=== PATIENT | female | born 1960 | race Caucasian/White ===

== ENCOUNTER 2018-12-09 09:56 | Emergency (ER) | payer OTHER ==
[~2018-12-09] VITALS: Ht 177.8 cm; Wt 108.9 kg
--- OUTSIDE RECORDS SUMMARY | 2018-12-09 09:59 | XMS REPORT ---
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 Assessment Other intermediate (current) drug therapy Z79.899 Active Assessment Polyarthralgia M25.50 Active Problem Acute bilateral thoracic back pain M54.6 Active Problem Neck pain M54.2 Active Problem Hypothyroidism, unspecified type E03.9 Active Problem Polyarthralgia M25.50 Active Problem Other specified arthritis, 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 Problem Osteopenia M85.80 Active Problem Skin rash R21 Active Medications Medication Code System Code Instructions Start Date End Date Status Dosage Tramadol HCl [facility] 26103959861 50 MG Orally as needed Dec 15, 2017 Inactive 1 tablet Vitamin B12 [facility] 20565346817 1000 MCG Orally Once a day Active 1 tablet Xanax ND 25272277911 0.5 MG Orally q day Oct 29, 2017 Active [address] [facility] 61740973839 - Orally Active as directed Glucosamine ND 95688989706 500 MG Orally Once a day Active 1 capsule with a meal Aspirin ND 37875692005 81 MG Orally Once a day Active 1 tablet Metoprolol Succinate ER ND 52059903530 25 MG Orally once a day Oct 29, 2017 Active 1 tablet Sertraline HCl ND 65624872649 100 MG Orally Once a day Oct 29, 2017 Active 1/2 tablet Medrol ND 74345500932 4 MG Orally q am with food Oct 29, 2017 Active 1 tablet Meloxicam ND 02060232261 7.5 MG Orally twice a day Active 1 tablet Vital Signs Date/Time: Dec 15, 2017 BMI 35.15 Index Weight 245 lbs Height 70 in Temperature 98.7 F Cardiac Monitoring Heart Rate 72 /min Blood Pressure Diastolic 72 mm Hg Blood Pressure Systolic 120 mm Hg Results No Known Results Summary Purpose eClinicalWorks Submission
--- OUTSIDE RECORDS SUMMARY | 2018-12-09 09:59 | XMS REPORT ---
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 31935169729 25 MG Orally once a day Active 1 tablet Results No Known Results Summary Purpose eClinicalWorks Submission
--- OUTSIDE RECORDS SUMMARY | 2018-12-09 09:59 | XMS REPORT ---
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
--- OUTSIDE RECORDS SUMMARY | 2018-12-09 09:59 | XMS REPORT ---
Author Skip Andrews Organization e[employer] Address Unknown Phone Unavailable Care Team Providers Care Highballer Name Role Phone Skip Hill CP Unavailable Allergies No Known Allergies Problems Problem Type Condition Code Onset Dates Condition Status Assessment Low back pain at multiple sites M54.5 Active Problem Other [facility] (current) drug therapy Z79.899 Active Assessment Neck pain M54.2 Active Problem Acute bilateral thoracic back pain M54.6 Active Problem Neck pain M54.2 Active Problem Hypothyroidism, unspecified type E03.9 Active Problem Polyarthralgia M25.50 Active Problem Other specified arthritis, 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
--- OUTSIDE RECORDS SUMMARY | 2018-12-09 09:59 | XMS REPORT | Continuity of Care Document ---
Author Author [employer] [facility] Interface Address Unknown Phone Unavailable Problems Problem Status Onset Date Classification Date Reported Comments Source Other skilled nursing drug therapy Active Problem 12/08/2018 Dax Hill Acute bilateral thoracic back pain Active Problem 12/08/2018 Dax Hill Neck pain Active Problem 12/08/2018 Dax Hill Hypothyroidism, unspecified type Active Problem 12/08/2018 Dax Hill Polyarthralgia Active Problem 12/08/2018 Dax Hill Other specified arthritis, multiple sites Active Problem 12/08/2018 Dax Hill Osteopenia Active Problem 12/08/2018 Dax Hill Skin rash Active Problem 12/08/2018 Dax Hill Low back pain at multiple sites Active Diagnosis 08/11/2018 Dax Hill Medications Medication Details Route Status Patient Instructions Ordering Provider Order Date Source Tramadol HCl 1 tablet Orally Active 50 MG Orally as needed [place] 12/15/2017 Dax Hill Xanax 1 tablet Orally Active 0.5 MG Orally q day [place] 10/29/2017 Dax Hill Metoprolol Succinate ER 1 tablet Orally Active 25 MG Orally once a day [place] 10/29/2017 Dax Hill Sertraline HCl 1/2 tablet Orally Active 100 MG Orally Once a day [place] 10/29/2017 Dax Hill Medrol 1 tablet Orally Active 4 MG Orally q am with food [place] 10/29/2017 Dax Hill Metoprolol Succinate ER 1 tablet Orally Active 25 MG Orally once a day [place] Dax Hill Aspirin 1 tablet Orally Active 81 MG Orally Once a day [place] Dax Hill Xanax 1 tablet Orally Active 0.5 MG Orally q day [place] Dax Hill Medrol 2 tablets Orally Active 4 MG Orally q am with food [place] Dax Hill Sertraline HCl 1/2 tablet Orally Active 100 MG Orally Once a day [place] Dax Hill Metoprolol Succinate ER 1 tablet Orally Active 25 MG Orally once a day [place] Dax Hill Vitamin B12 1 tablet Orally Active 1000 MCG Orally Once a day [place] Dax Hill Probiotic as directed Orally Active - Orally Liz Hill Glucosamine 1 capsule with a meal Orally Active 500 MG Orally Once a day Liz Hill Meloxicam 1 tablet Orally Active 7.5 MG Orally twice a day Liz Hill Allergies, Adverse Reactions, Alerts Substance Category Reaction Severity Reaction type Status Date Reported Comments Source Demerol Adverse Reaction anxiety Adverse Reaction Active 06/15/2018 Dax Hill Immunizations Immunization Date Given Site Status Last Updated Comments Source Results Order Name Results Value Reference Range Date Interpretation Comments Source Vital Signs Vital Sign Value Date Comments Source Weight 251 06/15/2018 Dax Hill Height 70 06/15/2018 Dax Hill Temperature Oral (F) 98.3 F 06/15/2018 Dax Hill Heart Rate 76 06/15/2018 Dax Hill Diastolic (mm Hg) 88 06/15/2018 Dax Hill Systolic (mm Hg) 130 06/15/2018 Dax Hill Weight 245 12/15/2017 Dax Johnser Height 70 12/15/2017 Dax Hlil Temperature Oral (F) 98.7 F 12/15/2017 Dax Hill Heart Rate 72 12/15/2017 Dax Hill Diastolic (mm Hg) 72 12/15/2017 Dax Hill Systolic (mm Hg) 120 12/15/2017 Dax Hill Encounters Location Location Details Encounter Type Encounter Number Reason For Visit Attending Provider ADM Date DC Date Status Source Procedures Procedure Code Date Perfomer Comments Source
--- OUTSIDE RECORDS SUMMARY | 2018-12-09 09:59 | XMS REPORT ---
Author Author Skip Hill Organization eClinicalWorks Address Unknown Phone Unavailable Care Team Providers Care Sample Case Porter Name Role Phone Skip Hill CP Unavailable Allergies No Known Allergies Problems Problem Type Condition Code Onset Dates Condition Status Problem Other long term care phlebotomist (current) drug therapy Z79.899 Active Problem Acute [...]
--- OUTSIDE RECORDS SUMMARY | 2018-12-09 09:59 | XMS REPORT ---
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 Problem Acute bilateral thoracic back pain M54.6 Active Problem Neck pain M54.2 Active Problem Hypothyroidism, unspecified type E03.9 Active Problem Polyarthralgia M25.50 Active Problem Other specified arthritis, 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 Problem Osteopenia M85.80 Active Problem Skin rash R21 Active Assessment Other [facility] (current) drug therapy Z79.899 Active Assessment Polyarthralgia M25.50 Active Assessment Hypothyroidism, unspecified type E03.9 Active Medications Medication Code System Code Instructions Start Date End Date Status Dosage Aspirin [facility] 85615863515 81 MG Orally Once a day Active 1 tablet Xanax [facility] 28785220455 0.5 MG Orally q day Active 1 tablet Medrol [facility] 02934413569 4 MG Orally q am with food Active 2 tablets Sertraline HCl [facility] 86814630669 100 MG Orally Once a day Active 1/2 tablet Metoprolol Succinate ER [facility] 75136161226 25 MG Orally once a day Active 1 tablet Vital Signs Date/Time: Jun 15, 2018 BMI 36.01 Index Weight 251 lbs Height 70 in Temperature 98.3 F Cardiac Monitoring Heart Rate 76 /min Blood Pressure Diastolic 88 mm Hg Blood Pressure Systolic 130 mm Hg Results No Known Results Summary Purpose eClinicalWorks Submission
[2018-12-09] MEDS ORDERED: KETOROLAC TROMETHAMINE 30 MG/ML VIAL IV STA (10:24)
[2018-12-09] MEDS ORDERED: SODIUM CHLORIDE 0.9% 1000ML 1,000 ML IV SCH (10:30)
[2018-12-09] MEDS ORDERED: ONDANSETRON HCL INJ 2MG/ML 2ML 2 MG/ML VIAL IV STA (11:38)
--- NOTE | 2018-12-09 11:38 | Diagnostic Imaging Report ---
EXAM: CT Abdomen and Pelvis WITHOUT contrast INDICATION: Kidney stones. COMPARISON: None. TECHNIQUE: Abdomen and pelvis were scanned utilizing a multidetector helical scanner from the lung base to the pubic symphysis without administration of IV contrast. Absence of intravenous contrast decreases sensitivity for detection of focal lesions and vascular pathology. Coronal and sagittal reformations were obtained. Routine protocol was performed. IV CONTRAST: None. ORAL CONTRAST: Water RADIATION DOSE: Total DLP: 807.05 mGy*cm Estimated effective dose: (DLP x 0.015 x size factor) mSv COMPLICATIONS: None FINDINGS: LINES and TUBES: None. LOWER THORAX: Unremarkable HEPATOBILIARY: 3.3 cm cyst in the left hepatic lobe. 2 adjacent smaller cysts the largest measuring 1.8 cm on image 14. No biliary ductal dilation. GALLBLADDER: No radio-opaque stones or sludge. No wall thickening. SPLEEN: No splenomegaly. PANCREAS: No focal masses or ductal dilatation. ADRENALS: No adrenal nodules KIDNEYS/URETERS: 6 mm calculus (and possibly an adjacent punctate calculus) in the distal left ureter on image 80 series 2, resulting in mild left hydroureteronephrosis. Punctate calculus in the lower pole of the left kidney. GI TRACT: No abnormal distention, wall thickening, or evidence of bowel obstruction. Mild diverticulosis without diverticulitis. Appendix is normal. PELVIC ORGANS/BLADDER: The uterus is retroverted. LYMPH NODES: No lymphadenopathy. VESSELS: There is mild atherosclerotic disease in the aorta and major arterial branches. PERITONEUM / RETROPERITONEUM: No free air or fluid. BONES: No acute abnormality. SOFT TISSUES: Unremarkable. IMPRESSION: 1. 6 mm calculus in the distal left ureter resulting in mild left hydroureteronephrosis. Signed by: Dr. Ariadna Saini M.D. on 12/09/2018 11:35 AM
[2018-12-09 11:58] VITALS: BP 145/89
[2018-12-09] MEDS ORDERED: MORPHINE SULFATE 2 MG/ML SYR 1ML IV STA (12:09)
== END 2018-12-09 12:07 | disposition home or self-care (01) ==
LOC: FSED 09:56
DX: R10.2 Pelvic and perineal pain (principal); M54.5 Low back pain; R11.0 Nausea; N20.0 Calculus of kidney; F41.9 Anxiety disorder, unspecified
CPT/HCPCS: 74176; 80053; 80076; 81003; 85025; 99284; J1885; J2270; J2405; J7030

== ENCOUNTER → 2024-06-29 | Outpatient (REF) | payer OTHER ==
[~2024-06-29] MED LIST: IOPAMIDOL 370 MG/ML 100 ML INFUS..BTL INJ ONE
[2024-06-29 13:23] LABS: CREATININE, SERUM 0.76 mg/dL (0.57-1.11)
== END ==
LOC: CT 12:21
PROVIDERS: ATTEND Family Medicine
DX: R22.1 Localized swelling, mass and lump, neck (principal)
CPT/HCPCS: 36415; 70491; 82565; 84520; Q9967